=== PATIENT | female | born 1980 | race Caucasian/White ===

== ENCOUNTER 2017-07-13 08:22 | Emergency (ER) | payer MEDICAID, OTHER ==
[~2017-07-13] VITALS: Ht 165.1 cm; Wt 61.5 kg
[2017-07-13 08:26] VITALS: Ht 165.1 cm; Wt 61.5 kg
--- NOTE | 2017-07-13 09:34 | RADRPT ---
PROCEDURE: XR Foot. CLINICAL INDICATION: Right fifth digit trauma and pain. TECHNIQUE: AP, lateral, and oblique views of the right foot are available for review. COMPARISON: None available FINDINGS: There is a nondisplaced fracture at the base of the right fifth proximal phalanx. Remainder of the b ones of the right foot appear intact. No other fractures are identified. Soft tissues are within nor mal limits. . IMPRESSION: Nondisplaced transverse fracture of the base of the fifth proximal phalanx. RPTAT: GG .Ton Francis MD, Date Time Electronically viewed and signed by .Ton Francis MD, on 07/13/2017 09:34 .L/
[2017-07-13] MEDS ORDERED: NAPR-260 PO (09:38)
--- NOTE | 2017-07-13 10:13 | ERD ---
ER Documentation Chief Complaint Date/Time DATE: 07/13/17 TIME: 09:50 Chief Complaint RIGHT FIFTH TOE INJURY AND PAIN HPI 37-year-old female planing of pain to right fifth toe. Initially patient was walking and toe got caught on a wall corner. Patient has not taken medications for pain. States pain is worse with flexion extension at toe however has minimal pain with ambulation. Denies numbness or tingling. Denies medical problems. NKDA. Surgical history: Ectopic. Social history: Denies ROS All systems reviewed and are negative except as per history of present illness. Medications Home Meds Active Scripts Naproxen* (Naprosyn*) 500 Mg Tablet, 500 MG PO BID Y for PAIN AND/OR INFLAMMATION, #30 TAB Prov:LORIN GELLER PA-C 07/13/17 Allergies Allergies: Coded Allergies: No Known Allergy (Unverified , 07/13/17) PMhx/Soc Medical and Surgical Hx: pt denies Medical Hx, pt denies Surgical Hx Hx Alcohol Use: No Hx Substance Use: No Hx Tobacco Use: No Smoking Status: Never smoker Physical Exam Vitals Vital Signs Date Time Temp Pulse Resp B/P Pulse Ox O2 Delivery O2 Flow Rate FiO2 07/13/17 08:26 99.2 67 18 123/58 100 Physical Exam GENERAL: The patient is well-appearing, well-nourished, in no acute distress CHEST: Clear to auscultation bilaterally. There are no rales, wheezes or rhonchi. HEART: Regular rate and rhythm. No murmurs, clicks, rubs or gallops. No S3 or S4. EXTREMITIES: Tender to palpation at the MTP joint of the right toe on right foot. No obvious deformity. Decreased range of motion of the right fifth toe secondary to pain. Neurovascularly intact. NEUROLOGIC: Motor strength in all 4 extremities with 5 out of 5 strength. Sensation grossly intact. SKIN: Ecchymosis noted to lateral portion of the right foot. No abrasions or lacerations. No rashes. Procedures/MDM ER course: fourth and Fifth right toe alfa taped. Ortho so hard sole shoe applied. DIAGNOSTIC IMAGING REPORT Patient: DAVID LUBIN : 1980 Age: 37 Sex: F MR #: [id number] DOS: 07/13/17 0849 Ordering MD: SAMMI GELLER PA-C Location: [facility] Room/Bed: PROCEDURE: XR Foot. CLINICAL INDICATION: Right fifth digit trauma and pain. TECHNIQUE: AP, lateral, and oblique views of the right foot are available for review. COMPARISON: None available FINDINGS: There is a nondisplaced fracture at the base of the right fifth proximal phalanx. Remainder of the bones of the right foot appear intact. No other fractures are identified. Soft tissues are within normal limits. . IMPRESSION: Nondisplaced transverse fracture of the base of the fifth proximal phalanx. MDM: 37-year-old female complaining of pain to her right fifth toe. Patient's xray shows displaced fracture. A low suspicion for neuro or vascular deficit. Patient's toes are alfa taped and ortho shoe is placed. She is recommended to follow-up with primary care within 1-2 days for close evaluation. Patient is told if symptoms change or worsen to return the ER. Patient is recommended to elevate rest and use ice on her right foot. Patient will take medication for pain. Departure Diagnosis: Primary Impression: Injury of toe Condition: Stable Patient Instructions: Finger and Toe Fractures (Broken Finger or Toe) Referrals: MICHAEL CHAPMAN (PCP) Additional Instructions: FOLLOW UP WITH YOUR PRIMARY CARE PHYSICIAN TOMORROW.Return to this facility if you are not improving as expected. LORIN GELLER PA-C Jul 13, 2017 10:00
== END 2017-07-13 10:10 | disposition home or self-care (01) ==
LOC: FTE 08:22
DX: S99.921A Unspecified injury of right foot, initial encounter (principal); W23.1XXA Caught, crushed, jammed, or pinched between stationary objects, initial encounter; Y92.9 Unspecified place or not applicable
CPT/HCPCS: 73660